=== PATIENT | male | born 1950 | race African-American/Black ===

== ENCOUNTER 2020-05-10 13:49 | Emergency (ER) | payer OTHER, MEDICAID ==
[~2020-05-10] VITALS: Ht 185.4 cm; Wt 82.0 kg
[2020-05-10] MEDS ORDERED: SODIUM CHLORIDE 0.9% 1,000 ML IV ONE (14:16)
[2020-05-10] MEDS ORDERED: LEVETIRACETAM 500MG PREMIX 100 ML IV ONE (14:30)
[2020-05-10 16:19] VITALS: BP 136/77
[2020-05-10 16:56] LABS: BASOPHILS % 0.3 % (0.0-2.0); EOSINOPHILS % 0.5 % (0.0-5.0); HEMATOCRIT. 45.9 % (42.0-52.0); HEMOGLOBIN. 15.1 g/dL (14.0-18.0); LYMPHOCYTES % 15.5 % (20.0-50.0); MEAN CORPUSCULAR HEMOGLOBIN 30.6 pg (28.0-32.0); MEAN CORPUSCULAR VOLUME 93.1 fL (80.0-94.0); MEAN PLATELET VOLUME 9.4 fl (7.4-10.4); MONOCYTES % 8.2 % (2.0-8.0); NEUTROPHILS % 75.5 % (40.0-76.0); PLATELET 156 x1000/uL (130-400); RED BLOOD CELL COUNT 4.93 mill/uL (4.7-6.1); RED CELL DISTRIBUTION WIDTH 15.8 % (11.6-14.6)
[2020-05-10 16:59] LABS: CHLORIDE 102 mEq/L (98-107)
[2020-05-10 17:11] LABS: CARBAMAZEPINE < 0.5 ug/mL (4-12); PHENOBARBITAL < 2.1 ug/mL (15.0-40.0)
[2020-05-10] MEDS ORDERED: PHENYTOIN SODIUM EXTENDED 100MG CAPSULE PO ONE (17:30)
== END 2020-05-10 18:25 | disposition home or self-care (01) ==
LOC: ER 14:42
DX: G40.909 Epilepsy, unspecified, not intractable, without status epilepticus (principal); R00.0 Tachycardia, unspecified; I10 Essential (primary) hypertension; I69.354 Hemiplegia and hemiparesis following cerebral infarction affecting left non-dominant side; R89.2 Abnormal level of other drugs, medicaments and biological substances in specimens from other organs, systems and tissues
CPT/HCPCS: 36415; 80053; 80156; 80165; 80184; 80185; 85025; 93005; 96374; 99284; J1953; J7030

== ENCOUNTER 2021-12-20 15:25 | Emergency (ER) | payer OTHER, MEDICAID ==
[~2021-12-20] VITALS: Ht 177.8 cm; Wt 63.0 kg
[2021-12-20 16:16] LABS: BASOPHILS % 0.5 % (0.0-2.0); EOSINOPHILS % 1.5 % (0.0-5.0); HEMOGLOBIN. 13.2 g/dL (14.0-18.0); LYMPHOCYTES % 31.6 % (20.0-50.0); MEAN CORPUSCULAR HEMOGLOBIN 28.8 pg (28.0-32.0); MEAN PLATELET VOLUME 8.1 fl (7.4-10.4); MONOCYTES % 10.6 % (2.0-8.0); NEUTROPHILS % 55.8 % (40.0-76.0); PLATELET 151 x1000/uL (130-400); RED CELL DISTRIBUTION WIDTH 16.3 % (11.6-14.6)
[2021-12-20 16:22] LABS: CHLORIDE 102 mEq/L (98-107)
[2021-12-20 16:32] LABS: ETHANOL BLOOD < 10 mg/dL; PHOSPHORUS 2.3 mg/dL (2.5-4.9)
[2021-12-20] MEDS ORDERED: HALOPERIDOL LACTATE 5MG/ML VIAL IM ONE (19:00)
[2021-12-20] MEDS ORDERED: DIPHENHYDRAMINE 50MG/ML VIAL IM ONE (20:00)
[2021-12-20] MEDS ORDERED: LORAZEPAM 2MG/ML CPJ IM ONE (20:00)
[2021-12-21 10:00] VITALS: BP 106/75
== END 2021-12-21 11:22 | disposition short-term general hospital (02) ==
LOC: ER 15:25
DX: R62.7 Adult failure to thrive (principal); R45.1 Restlessness and agitation; I10 Essential (primary) hypertension; Z68.1 Body mass index [BMI] 19.9 or less, adult; G40.909 Epilepsy, unspecified, not intractable, without status epilepticus; F03.90 Unspecified dementia, unspecified severity, without behavioral disturbance, psychotic disturbance, mood disturbance, and anxiety; C80.1 Malignant (primary) neoplasm, unspecified
CPT/HCPCS: 36415; 71045; 80053; 80320; 83690; 83735; 84100; 84484; 85025; 87426; 96372; 99285; C9803; J1200; J1630; J2060; 80305; G0480